=== PATIENT | female | born 1945 | race Caucasian/White ===

== ENCOUNTER → 2018-09-13 01:38 | Emergency (ER) | payer MEDICARE, BC ==
[~2018-09-13 01:38] MED LIST: Iodixanol* (CONTRAST) 320 MG/ML 100 ML SDV IV ONE; Pantoprazole IV* 40 MG IV ONE
--- NOTE | 2018-09-13 02:00 | ED ---
Back Pain - HPI Summary HPI Summary: Pt is a 73 y/o F presenting to the ED brought in by EMS with a chief complaint of back pain onset around 0020 located between her shoulder blades. Pt reports nausea and diaphoresis. Cardiac stress test done in 2014. - History of Current Complaint Chief Complaint: EDBackInjuryPain Stated Complaint: SHOULDER PAIN Time Seen by Provider: 09/13/18 01:41 Hx Obtained From: Patient Onset/Duration: Sudden Onset, Lasting Hours, Resolved Onset/Duration: Started Hours Ago, Resolved Timing: Constant, Lasting Hours Back Pain Location: Is Discrete @ - between shoulder blades Severity Initially: Moderate Severity Currently: Mild Pain Intensity: 1 Pain Scale Used: 0-10 Numeric Character: Sharp Aggravating Symptom(s): Nothing Alleviating Symptom(s): Nothing Associated Signs And Symptoms: Positive: Negative - Allergies/Home Medications Allergies/Adverse Reactions: Allergies Allergy/AdvReac Type Severity Reaction Status Date / Time MS Oxycodone [From Percodan] Allergy Rash Verified 09/13/18 04:04 Home Medications: Home Medications Cholecalciferol TAB* [Vitamin D TAB*] 400 unit PO DAILY 09/13/18 [History Confirmed 09/13/18] PMH/Surg Hx/FS Hx/Imm Hx Previously Healthy: No Endocrine/Hematology History: Reports: Hx Diabetes, Hx Thyroid Disease Cardiovascular History: Denies: Hx Hypertension Respiratory History: Denies: Hx Asthma, Hx Chronic Obstructive Pulmonary Disease (COPD) GI History: Denies: Hx Ulcer - Cancer History Hx Chemotherapy: No Hx Radiation Therapy: No - Surgical History Surgery Procedure, Year, and Place: 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 Infectious Disease History: No Infectious Disease History: Denies: Hx Hepatitis, Hx Human Immunodeficiency Virus (HIV), Traveled Outside the [place] in Last 30 Days - Family History Known Family History: Positive: Cardiac Disease, Hypertension, Diabetes - Social History Alcohol Use: None Substance Use Type: Reports: None Smoking Status (MU): Never Smoked Tobacco Review of Systems Positive: Skin Diaphoresis. Negative: Fever Positive: Nausea Positive: Myalgia - back pain All Other Systems Reviewed And Are Negative: Yes Physical Exam - Summary Physical Exam Summary: VITAL SIGNS: Reviewed. GENERAL: Patient is a well-developed and nourished female who is lying comfortable in the stretcher. Patient is not in any acute respiratory distress. HEAD AND FACE: No signs of trauma. No ecchymosis, hematomas or skull depressions. No sinus tenderness. EYES: PERRLA, EOMI x 2, No injected conjunctiva, no nystagmus. EARS: Hearing grossly intact. Ear canals and tympanic membranes are within normal limits. MOUTH: Oropharynx within normal limits. NECK: Supple, trachea is midline, no adenopathy, no JVD, no carotid bruit, no c- spine tenderness, neck with full ROM. CHEST: Symmetric, no tenderness at palpation LUNGS: Clear to auscultation bilaterally. No wheezing or crackles. CVS: Regular rate and rhythm, S1 and S2 present, no murmurs or gallops appreciated. ABDOMEN: Epigastric tenderness. No signs of distention. No rebound no guarding, and no masses palpated. Colostomy R mid abdomen, full of soft brown stool. EXTREMITIES: FROM in all major joints, no edema, no cyanosis or clubbing. NEURO: Alert and oriented x 3. No acute neurological deficits. Speech is normal and follows commands. SKIN: Dry and warm Triage Information Reviewed: Yes Vital Signs On Initial Exam: Initial Vitals Temp Pulse Resp BP Pulse Ox 97.9 F 56 15 137/54 95 09/13/18 01:40 09/13/18 01:40 09/13/18 01:40 09/13/18 01:40 09/13/18 01:40 Vital Signs Reviewed: Yes Diagnostics - Vital Signs Vital Signs Temp Pulse Resp BP Pulse Ox 09/13/18 01:40 97.9 F 56 15 137/54 95 - Laboratory Result Diagrams: 09/13/18 02:13 09/13/18 02:13 Lab Statement: Any lab studies that have been ordered have been reviewed, and results considered in the medical decision making process. - Radiology Chest x-ray Radiology Interpretation Completed By: ED Physician Summary of Radiographic Findings: No acute process. Official radiology report pending. - CT CTA Chest w/ Contrast CT Interpretation Completed By: Radiologist Summary of CT Findings: 1. There is a 1.4cm pulmonary nodule noted in the right lower lobe. Findings may represent a neoplastic process. Recommend further evaluation with PET CT or soft tissue sampling. 2. No evidence of pulmonary embolus or aortic dissection. There is no aortic aneurysm noted. ED physician has reviewed this report. - EKG 0216 Cardiac Rate: Bradycardia - 49bpm EKG Rhythm: Sinus Bradycardia ST Segment: Normal Ectopy: None EKG Comparison: No Significant Change - from 09/13/2015 Summary of EKG Findings: T-wave inversion in the second leads Back Pain Course/Dx - Course Course Of Treatment: Pt is a 73 y/o F presenting to the ED brought in by EMS with a chief complaint of back pain onset around 0020 located between her shoulder blades. Pt reports nausea and diaphoresis. Pt presently does not have any back pain, but has mild epigastric tenderness. Bloodwork obtained. An EKG shows sinus bradycardia with T wave inversion in the second leads, unchanged from 09/13/2015, and a chest x-ray shows no acute process, pending official radiology report. CTA Chest/abd/pelv shows a 1.4 cm pulmonary nodule noted in the R lower lobe which may represent a neoplastic process. Radiology recommends further evaluation with PET CT or soft tissue sampling. Results were discussed with pt. Both troponins came back normal. Pt will be discharged with dx of pulmonary nodule and chest pain with instructions to follow up with medical sales and [facility] outpatient as soon as possible. - Diagnoses Provider Diagnoses: Pulmonary nodule, Chest pain Discharge - Sign-Out/Discharge Documenting (check all that apply): Patient Departure Patient Received Moderate/Deep Sedation with Procedure: No - Discharge Plan Condition: Stable Disposition: HOME Patient Education Materials: Chest Pain (ED), Pulmonary Nodules (ED) Referrals: Tarun Ku PA [Primary Care Provider] - Boogie Cota MD [Medical Doctor] - Steph Culp MD [Medical Doctor] - Additional Instructions: PLEASE FOLLOW UP WITH [facility] SOON POSSIBLE TO ADDRESS YOUR PULMONARY NODULE. RETURN TO THE EMERGENCY DEPARTMENT WITH ANY NEW OR WORSENING SYMPTOMS. - Attestation Statements Document Initiated by Scribe: Yes Documenting Scribe: Ignacia Suarez Provider For Whom Vani is Documenting (Include Credential): Terry Silva MD. Scribe Attestation: Ignacia Higginbotham, scribed for Terry Silva MD. on 09/13/18 at 0614. Status of Scribe Document: Ready
[2018-09-13 02:22] LABS: ABS Basophils 0.1 10^3/ul (0-0.2); ABS Eosinophils 0.3 10^3/ul (0-0.6); ABS Lymphocytes 2.1 10^3/ul (1.0-4.8); ABS Neutrophils 5.9 10^3/ul (1.5-7.7); ABS Nucleated RBC 0 10^3/ul; Eosinophil % 2.9 %; Hematocrit 42 % (35-47); Hemoglobin 14.5 g/dl (12.0-16.0); Lymphocyte % 22.8 %; Mean Corpuscular HGB Conc 34 g/dl (31-36); Mean Corpuscular Hemoglobin 31 pg (27-31); Mean Corpuscular Volume 90 fL (80-97); Mean Platelet Volume 8.6 fL (7.4-10.4); Nucleated Red Blood Cells % 0; Platelet Count 216 10^3/ul (150-450); Red Blood Count 4.72 10^6/ul (4.00-5.40); Red Cell Distribution Width 12 % (10.5-15); White Blood Count 9.3 10^3/ul (3.5-10.8)
[2018-09-13 02:28] LABS: INR 0.93 (0.77-1.02)
[2018-09-13 02:29] LABS: Activated Partial Thrombo Time 31.7 seconds (26.0-36.3)
[2018-09-13 02:38] LABS: Albumin 4.1 g/dL (3.2-5.2); Albumin/Globulin Ratio 1.4 (1-3); BUN/Creatinine Ratio 21.3 (8-20); Calcium 9.4 mg/dL (8.6-10.3); EGFR African American 59.8 (>60); EGFR Non-African American 49.5 (>60); Magnesium 1.7 mg/dL (1.9-2.7); Total Bilirubin 0.4 mg/dL (0.2-1.0); Total Protein 7.1 g/dL (6.4-8.9)
[2018-09-13 02:39] LABS: Troponin I 0.01 ng/mL (<0.04)
[2018-09-13 02:55] LABS: TSH (Thyroid Stimulating Horm) 2.56 mcIU/mL (0.34-5.60)
[2018-09-13 06:32] VITALS: BP 122/68
== END | disposition home or self-care (01) ==
LOC: ED 01:38
DX: R07.89 Other chest pain (principal); R91.1 Solitary pulmonary nodule; R00.1 Bradycardia, unspecified; E11.9 Type 2 diabetes mellitus without complications; I45.10 Unspecified right bundle-branch block; Z88.5 Allergy status to narcotic agent
CPT/HCPCS: 36415; 71045; 71275; 74174; 80053; 82150; 83690; 83735; 84443; 84484; 85025; 85610; 85730; 86140; 93005; 96374; 99283; Q9967

== ENCOUNTER 2018-10-13 16:23 | Emergency (ER) | payer MEDICARE, BC ==
[2018-10-13 16:57] VITALS: BP 148/52
--- NOTE | 2018-10-13 17:19 | UC ---
UC General HPI - HPI Summary HPI Summary: 73 female c/o acute onset of midepig pain, progressively worse, since approx 15: 00 today. ++ nausea, no vomit. Last po approx 4:40pm, water /bagel. Has ostomy. See MDM re further hx significant. No fever. no cough. Recently last month admitted to the hospital for cp w/u. Has had nucl stress since then "normal". Has had PET scan as well ([facility] result). Also hx dvt in the past. RN note - nausea since 3pm today, vomitting. pain high center. has ostomy. 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 choly 97. T&A as child. cataract - Family History Known Family History: Positive: Cardiac Disease, Hypertension, Diabetes - Social History Alcohol Use: Daily Substance Use Type: None Smoking Status (MU): Never Smoked Tobacco Review of Systems All Other Systems Reviewed And Are Negative: Yes Constitutional: Positive: Negative Skin: Positive: Negative - nondiaphoretic Eyes: Positive: Negative ENT: Positive: Negative Respiratory: Positive: Other - see hpi Cardiovascular: Positive: Other - see hpi Gastrointestinal: Positive: Abdominal Pain, Nausea, Other - see hpi Genitourinary: Positive: Other - see hpi Motor: Positive: Other - see hpi Neurovascular: Positive: Other - see hpi Musculoskeletal: Positive: Other: - see hpi Neurological: Positive: Negative Psychological: Positive: Negative Is Patient Immunocompromised?: No Physical Exam Triage Information Reviewed: Yes Appearance: Well-Nourished, Pain Distress Vital Signs: Initial Vital Signs Temp 96.6 F 10/13/18 16:51 Pulse 105 10/13/18 16:51 Resp 22 10/13/18 16:51 BP 148/52 10/13/18 16:51 Pulse Ox 98 10/13/18 16:51 Vital Signs Reviewed: Yes Eye Exam: Normal - grossly normal ENT: Positive: Pharynx normal, Other - Facial expressions grossly symmetric. MMM dry. Neck exam: Normal Neck: Positive: Supple, Nontender Respiratory: Positive: Chest non-tender, Lungs clear - BS equal, clear, No respiratory distress, No accessory muscle use Cardiovascular Exam: Other - HR regular, with occas extra beat, correlates with L rad pulse Abdominal Exam: Other - + ostomy, with normal appearing stool. No blood gross. + multiple surgical scars. Abd is very tender, particularly midepigastrium, but also throughout abdomen. + NABS. Soft lower abd, but voluntary guarding upper abd. Musculoskeletal Exam: Normal - moves x 4 ext's. not overly edematous Neurological Exam: Normal - grossly nonfocal Psychological Exam: Normal - conversing easily and appropriately Course/Dx - Course Course Of Treatment: Multiple potential etiologies for pain. 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 Last seen in ED 09/13/18 ([facility]) . CT report in [facility] noted (includ possible 1.4cm pulm nodule RLL. Since then has had PET scan (also in [facility].). Pt drove herself here, but is currently very uncomfortable, including passive movement. [place] [facility] [place], she expresses agreement. Questions as posed answered to the best of my ability. EKG SR at 63 bpm, GA 220, QTc 484. similar 2.6.19. Blood glucose -. IV / fluids initiated prior to transfer. 17:45 d/w Dr. Morrison ED. - Diagnoses Provider Diagnosis: Acute abdominal pain Discharge - Sign-Out/Discharge Documenting (check all that apply): Patient Departure All imaging exams completed and their final reports reviewed: No Studies - Discharge Plan Condition: Guarded Disposition: ADMITTED TO [facility] Patient Education Materials: Acute Abdominal Pain (ED) Referrals: Tarun Ku PA [Primary Care Provider] - - Billing Disposition and Condition Condition: GUARDED Disposition: Admitted to [facility]
[2018-10-13] MEDS ORDERED: NS 0.9% 500 ML* 500 ML IV ONE (17:47)
[2018-10-13] MEDS ORDERED: NS 0.9% 1000 ML** 1,000 ML IV ONE (17:58)
== END 2018-10-13 18:05 | disposition short-term general hospital (02) ==
LOC: UCEAST 16:23
DX: R10.13 Epigastric pain (principal); R11.0 Nausea; Z88.5 Allergy status to narcotic agent
CPT/HCPCS: 96360; 99213; G0463

== ENCOUNTER 2018-10-13 18:28 | Inpatient (IN) | payer MEDICARE, BC ==
[2018-10-13] MEDS ORDERED: Morphine VIAL* 10 MG/ML 1 ML VIAL IV ONE ×2 (18:50→20:28)
[2018-10-13] MEDS ORDERED: Ondansetron INJ* 2 MG/ML VIAL IV ONE (18:50)
[2018-10-13] MEDS ORDERED: NS 0.9% 1000 ML** 1,000 ML IV ONE ×2 (18:52→20:46)
--- NOTE | 2018-10-13 18:56 | ED ---
Abdominal Pain/Female - HPI Summary HPI Summary: A 73 y/o female brought in by [facility] accompanied by her niece, presents to [facility] with a chief complaint of abdominal pain on 10/13/18. She reports that this pain was sudden onset. She was seen at [facility] and was sent to the ED for further evaluation. She claims that her abdominal pain is radiating to her back. She claims that she was walking when her symptoms started. She rates her pain as an 8/10 in severity. She claims that she has SOB and cant take a deep breath along with nausea and chills. She denies fever, erythema (eyes), sore throat, chest pain, cough, vomiting, black tarry stools, dysuria, hematuria, myalgia, edema, rash and dizziness. She claims that she had surgery on her pancreas and also had an appendectomy and cholecystectomy. She denies a Hx of stomach ulcers or a FHx of aneurysms. Vital signs while in room HR: 68 bpm, O2 Sat: 96, BP: 153/73. - History of Current Complaint Chief Complaint: EDAbdPain Stated Complaint: ABD PAIN/NAUSEA PER EMS Time Seen by Provider: 10/13/18 18:40 Hx Obtained From: Patient, Family/Fleet Maintenance Manager, EMS Hx Last Menstrual Period: na Onset/Duration: Sudden Onset, Lasting Hours, Still Present Timing: Constant Severity Initially: Severe Severity Currently: Severe Pain Intensity: 8 Pain Scale Used: 0-10 Numeric Location: Diffuse Radiates: Yes Radiates to: Back Character: Other: - sudden onset Aggravating Factor(s): Nothing Alleviating Factor(s): Nothing Associated Signs and Symptoms: Positive: Back Pain, Nausea. Negative: Fever, Cough, Chest Pain, Dizzy, Blood in Stool, Vomiting Allergies/Adverse Reactions: Allergies Allergy/AdvReac Type Severity Reaction Status Date / Time oxycodone Allergy Intermediate Rash Verified 10/13/18 16:57 PMH/Surg Hx/FS Hx/Imm Hx Endocrine/Hematology History: Reports: Hx Diabetes - typeII, Hx Thyroid Disease - hypo Cardiovascular History: Denies: Hx Hypertension Respiratory History: Denies: Hx Asthma, Hx Chronic Obstructive Pulmonary Disease (COPD) GI History: Denies: Hx Ulcer History: Denies: Hx Renal Disease - Cancer History Hx Chemotherapy: No Hx Radiation Therapy: No - Surgical History Surgery Procedure, Year, and Place: 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 choly 97. T&A as child. cataract Infectious Disease History: No Infectious Disease History: Denies: Hx Hepatitis, Hx Human Immunodeficiency Virus (HIV), Traveled Outside the [place] in Last 30 Days - Family History Known Family History: Positive: Cardiac Disease, Hypertension, Diabetes - Social History Alcohol Use: Daily Alcohol Amount: 1 a day Substance Use Type: Reports: None Smoking Status (MU): Never Smoked Tobacco Review of Systems Positive: Chills. Negative: Fever Negative: Erythema Negative: Sore Throat Negative: Chest Pain Positive: Shortness Of Breath. Negative: Cough Gastrointestinal: Negative - black tarry stool Positive: Abdominal Pain, Nausea. Negative: Vomiting Negative: dysuria, hematuria Positive: Myalgia - back pain. Negative: Edema Negative: Rash Neurological: Negative - dizziness All Other Systems Reviewed And Are Negative: Yes Physical Exam - Summary Physical Exam Summary: Constitutional: Well-developed, Well-nourished, Alert. (-) Distressed Skin: Warm, Dry HENT: Normocephalic; Atraumatic Eyes: Conjunctiva normal Neck: Musculoskeletal ROM normal neck. (-) JVD, (-) Stridor, (-) Tracheal deviation Cardio: Rhythm regular, rate normal, Heart sounds normal; Intact distal pulses; The pedal pulses are 2+ and symmetric. Radial pulses are 2+ and symmetric. (-) Murmur Pulmonary/Chest wall: Effort normal. (-) Respiratory distress, (-) Wheezes, (-) Rales Abd: Soft, (+) diffuse tenderness, (-) Distension, (+) Guarding, (+) Rebound Musculoskeletal: (-) Edema Lymph: (-) Cervical adenopathy Neuro: Alert, Oriented x3 Psych: Mood and affect Normal Triage Information Reviewed: Yes Vital Signs On Initial Exam: Initial Vitals Temp Pulse Resp BP Pulse Ox 98.1 F 69 18 153/73 96 10/13/18 18:32 10/13/18 18:32 10/13/18 18:32 10/13/18 18:32 10/13/18 18:32 Vital Signs Reviewed: Yes Diagnostics - Vital Signs Vital Signs Temp Pulse Resp BP Pulse Ox 10/13/18 18:32 98.1 F 69 18 153/73 96 - Laboratory Result Diagrams: 10/13/18 19:14 10/13/18 19:13 Lab Statement: Any lab studies that have been ordered have been reviewed, and results considered in the medical decision making process. - Radiology CXR Radiology Interpretation Completed By: ED Physician Summary of Radiographic Findings: No obvious free air. Pending official imaging report. - CT abdomen/pelvis CT Interpretation Completed By: Radiologist Summary of CT Findings: 1. Common bile duct is enlarged up to 1.6 cm in diameter , increased in size. when compared with prior PET-CT from 3 days ago. 2. Small degree of pneumobilia, likely related to prior ERCP. 3. Other chronic findings, as above. ED physician has reviewed this imaging report. Re-Evaluation - Re-Evaluation First Eval Re-Evaluation Time: 19:24 Change: Improved Comment: Patient reports feeling a little better. Second Eval Re-Evaluation Time: 22:09 Change: Unchanged Comment: Informed patient about plan for admission. Abdominal Pain Fem Course/Dx - Course Course Of Treatment: A 73 y/o female brought in by [facility] ambulance accompanied by her niece, presents to [facility] with a chief complaint of abdominal pain on 03/26. She reports that this pain was sudden onset. She was seen at [facility] and was sent to the ED for further evaluation. She claims that her abdominal pain is radiating to her back. She claims that she was walking when her symptoms started. She rates her pain as an 8/10 in severity. She claims that she has SOB and cant take a deep breath along with nausea and chills. She denies fever, erythema (eyes), sore throat, chest pain, cough, vomiting, black tarry stools, dysuria, hematuria, myalgia, edema, rash and dizziness. She claims that she had surgery on her pancreas and also had an appendectomy and cholecystectomy. She denies a Hx of stomach ulcers or a FHx of aneurysms. The physical exam revealed diffuse tenderness with guarding and rebound. CXR impression: No obvious free air. Pending official imaging report. Bloodwork, chemistries and urines obtained. Lactic acid of 2.9 and lipase of 6439 at 19: 14. Urine glucose 3+ at 20:13. In the ED course the patient was given Morphine IV, Zofran IV, Zosyn IVPB, Sodium chloride IV, and Iodixanol (contrast) IV. CT abdomen/pelvis impression: 1. Common bile duct is enlarged up to 1.6 cm in diameter, increased in size. when compared with prior PET-CT from 3 days ago. 2. Small degree of pneumobilia, likely related to prior ERCP. 3. Other chronic findings, as above. ED physician has reviewed this imaging report. Discussed case with Dr. Billings, appeals manager, who recommended admission and plan for MRCP in the morning. He agreed with the abx. Case discussed with Dr. Garcia , hospitalist, who accepted the patient for admission. The patient is agreeable with this plan. - Diagnoses Provider Diagnoses: Gall stone pancreatitis, Cholangitis - Provider Notifications Discussed Care Of Patient With: Reagan Billings Time Discussed With Above Provider: 22:01 Instructed by Provider To: Other - He recommended admission and plan for MRCP in the morning. He agreed with the abx. - Critical Care Time Critical Care Time: 30-74 min - 45 mins Discharge - Sign-Out/Discharge Documenting (check all that apply): Patient Departure - admit Patient Received Moderate/Deep Sedation with Procedure: No - Discharge Plan Condition: Fair Disposition: ADMITTED TO [facility] Referrals: Tarun Ku PA [Primary Care Provider] - - Billing Disposition and Condition Condition: FAIR Disposition: Admitted to [facility] - Attestation Statements Document Initiated by Vani: Yes Documenting Scribe: Pardeep Garcia Provider For Whom Melodiee is Documenting (Include Credential): Justyn Morrison MD Scribe Attestation: Pardeep Higginbotham, scribed for Justyn Morrison MD on 10/13/18 at 2237. Scribe Documentation Reviewed: Yes Provider Attestation: The documentation as recorded by the Pardeep marshall accurately reflects the service I personally performed and the decisions made by me, Justyn Morrison MD Status of Scribe Document: Viewed Consult Consult: At 22:15 - Case discussed with Dr. Garcia, hospitalist, who will consult on the patient.
[2018-10-13 19:25] LABS: ABS Basophils 0 10^3/ul (0-0.2); ABS Eosinophils 0 10^3/ul (0-0.6); ABS Lymphocytes 1.3 10^3/ul (1.0-4.8); ABS Monocytes 1.5 10^3/ul (0-0.8); ABS Neutrophils 14.5 10^3/ul (1.5-7.7); ABS Nucleated RBC 0 10^3/ul; Eosinophil % 0.2 %; Hematocrit 43 % (35-47); Hemoglobin 14.5 g/dl (12.0-16.0); Lymphocyte % 7.7 %; Mean Corpuscular HGB Conc 34 g/dl (31-36); Mean Corpuscular Hemoglobin 30 pg (27-31); Mean Corpuscular Volume 91 fL (80-97); Mean Platelet Volume 8.4 fL (7.4-10.4); Nucleated Red Blood Cells % 0; Platelet Count 224 10^3/ul (150-450); Red Blood Count 4.79 10^6/ul (4.00-5.40); Red Cell Distribution Width 13 % (10.5-15); White Blood Count 17.5 10^3/ul (3.5-10.8)
[2018-10-13] MEDS ORDERED: ED Piperacillin/Tazobac 3.375 3.375 GM/100 ML PREMIX.SET IVPB ONE (19:45)
[2018-10-13 19:52] LABS: Albumin 4.4 g/dL (3.2-5.2); Albumin/Globulin Ratio 1.4 (1-3); BUN/Creatinine Ratio 21.2 (8-20); C Reactive Protein 6.38 mg/L (<8.01); Calcium 9.5 mg/dL (8.6-10.3); EGFR African American 78.9 (>60); EGFR Non-African American 65.2 (>60); Globulin 3.1 g/dL (2-4); Potassium 4.3 mmol/L (3.5-5.0); Total Bilirubin 0.6 mg/dL (0.2-1.0); Total Protein 7.5 g/dL (6.4-8.9)
[2018-10-13] MEDS ORDERED: Iodixanol* (CONTRAST) 320 MG/ML 100 ML SDV IV ONE (20:13)
[2018-10-13] MEDS ORDERED: Piperacillin/Tazobac (*) 3.375 GM BAG ONE (20:27)
[2018-10-13] MEDS ORDERED: Morphine VIAL* 4 MG/ML VIAL (1 ml vial) ONE (20:32)
[2018-10-13 20:33] LABS: Urine Appearance Clear; Urine Bilirubin Negative (Negative); Urine Blood Negative (Negative); Urine Color Yellow; Urine Glucose 3+(>=500 mg/dL) (Negative); Urine Ketones Negative (Negative); Urine Nitrite Negative (Negative); Urine Protein Negative (Negative); Urine Specific Gravity 1.015 (1.010-1.030); Urine Urobilinogen Negative (Negative)
[2018-10-13] MEDS ORDERED: Ondansetron INJ* 2 MG/ML VIAL IV PRN (22:50)
[2018-10-13] MEDS ORDERED: Acetaminophen TAB* 325 MG PO PRN (22:50)
[2018-10-13] MEDS ORDERED: Dextrose 50% Syringe 50 ML* 25 GM/50 ML SYRINGE IV PUSH PRN (23:14)
--- NOTE | 2018-10-14 01:23 | HP ---
CC: Dr. Everardo Ku in [place] * ADMISSION HISTORY AND PHYSICAL: DATE OF ADMISSION: 10/13/18 PRIMARY CARE PROVIDER: Dr. Everardo Ku in [place]. MY ATTENDING WHILE IN THE HOSPITAL: Dr. Madie Garcia.* (DICTATED BY JAELYN RUBIO) CHIEF COMPLAINT: Abdominal pain x8 hours. HISTORY OF PRESENT ILLNESS: Ms. Lazar is a 73-year-old female with past medical history significant for presumed recurrent pancreatitis initially from an ERCP, then of unknown etiology likely gallstone pancreatitis with postoperative course complicated by infected pancreatic cyst, hemorrhagic pancreatitis, and the need for pancreatic tail resection as well as C. diff recurrent x3 in the postoperative period, one time complicated by septic shock and need for colostomy. The patient states that she was in her normal state of health. She had not had any illnesses since she had the flu in her early September and had sudden onset of severe epigastric pain, boring, radiating to her back, at worst 8/10, associated with nausea and vomiting, without chest pain or shortness of breath. The patient had a bagel with a large amount of butter on it and cake earlier in the day, but generally does not have excessively fatty meals. The patient has not had any changes in medications in the last year and a half. The patient is not taking medications except for aspirin associated with pancreatitis. The patient has no fevers. The patient has been having chills. The patient does not have any blood in her colostomy. The patient has been draining normal amount from her colostomy. The patient has had no other sick contacts. The patient has not had anything abnormal. The patient has had no recent travel. The patient most recently had a PET scan and a CT scan to evaluate a pulmonary nodule without concern for malignancy. The patient came into the emergency department, was found to have an elevated white blood cell count, elevated lactic acid, and an elevated lipase of 6439. The patient was given fluids, pain control, and is feeling much better. The patient is nontachycardic, nonfebrile, not anemic. Due to concern for pancreatis, we were asked to evaluate the patient for admission to the hospital. PAST MEDICAL HISTORY: Recurrent pancreatitis, recurrent C. diff in 2010, hypothyroidism, diabetes mellitus type 2, pulmonary nodule. PAST SURGICAL HISTORY: Colostomy, cholecystectomy in 1996, distal pancreatectomy in August 2010. MEDICATIONS: 1. Synthroid 112 mcg p.o. daily. 2. Liothyronine 5 mcg p.o. b.i.d. 3. Invokana 5 mg p.o. daily. 4. B-complex vitamin 1 tablet p.o. daily. 5. Vitamin D 1000 units p.o. daily. 6. Magnesium oxide 400 mg p.o. q.i.d. 7. Potassium chloride 10 mEq p.o. every other day. 8. Aspirin 81 mg p.o. daily. 9. Multivitamin 1 tablet p.o. daily. 10. Calcium D 600 mg p.o. b.i.d. ALLERGIES: OXYCODONE. FAMILY HISTORY: The patient's mother at 60 with CHF. The patient's father at 76 with CHF. The patient had a sister who of breast cancer and a brother who of heart disease with a CABG. The patient had another brother who at 43 of complications of diabetes. SOCIAL HISTORY: The patient has never smoked. The patient drinks approximately 6 glasses of wine a week. The patient denies illicit drug use. 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 The patient's surrogate decision maker is her niece, Sania. REVIEW OF SYSTEMS: A 14-point review of systems was reviewed, was negative except as above in the HPI. PHYSICAL EXAMINATION GENERAL: The patient is a 73-year-old female, who appears stated age and sitting comfortably in bed, in no acute distress. VITAL SIGNS: Temperature 98.1, pulse rate 69, respiratory rate 18, oxygen saturation 92% on room air, blood pressure 106/76. HEENT: Head: Normocephalic, atraumatic. Sclerae anicteric. No conjunctival injection. Nasal mucosa dry. No pharyngeal erythema, discharge, or exudate. NECK: Supple, nontender. No lymphadenopathy. No carotid bruits auscultated. No JVD. RESPIRATORY: Clear to auscultation bilaterally. No wheezes or rhonchi. Good air exchange bilaterally. CARDIAC: Regular rate and rhythm. No clicks, murmurs, gallops, or rubs. Pulses 2+ in bilateral dorsalis pedis, posterior tibial, and radial areas. ABDOMEN: Soft, tender to palpation throughout particularly with bilateral upper lobes. Colostomy draining liquid green stool without blood. Normoactive bowel sounds present in all 4 quadrants. No hepatosplenomegaly. No abdominal bruits auscultated. GENITOURINARY: No suprapubic or CVA tenderness. NEURO: Cranial nerves II through XII intact. No focal deficits. Alert and oriented x3. PSYCHIATRIC: Pleasant and cooperative. SKIN: Clean, dry, and intact. No rash. Previous abdominal surgery scars. DIAGNOSTIC STUDIES/LAB DATA: White blood cell count 17.5, hemoglobin 14.5, platelet count 224. Sodium 139, potassium 4.3, chloride 102, carbon dioxide 26 , anion gap 10, BUN 18, creatinine 0.85, glucose 136, lactic acid 2.9, calcium 9.5. Bilirubin 0.6, AST 24, ALT 20, alkaline phosphatase 67. CRP 6.38. Protein 7.5, albumin 4.4, globulin 3.1, lipase 6439. Urine shows 3+ glucose, otherwise negative. Studies: Abdomen and pelvis CT read as common bile duct enlarged up to 1.6 cm and/or increased in size when compared to prior PET CT from 3 days ago, moderate pneumobilia likely related prior ERCP. Other chronic findings included right-sided ostomy, right parastomal hernia containing loops of bowel with no obstruction, diverticulosis, rectosigmoid colonic stump. Chest x-ray to this author's interpretation shows no active cardiopulmonary disease. ASSESSMENT AND PLAN: Impression: Ms. Lazar is a 73-year-old female with past medical history significant for recurrent pancreatitis and Clostridium difficile with colostomy and pancreatectomy as well as diabetes, who presents with sudden onset abdominal pain, was found to have pancreatitis of unclear cause. The patient will be admitted to the hospital for fluids, pain control, and gastroenterology consultation in the morning. 1. Pancreatitis, unknown cause. The patient has clear pancreatitis without cholangitis. The patient has a dilated bile duct. The patient has no gallbladder, though this entirely exclude gallstone disease, this could also be due to duct dyskinesia, idiopathic pancreatitis, as no previous cause for the patient's pancreatitis has been truly ruled in. The patient does believe that she previously had gallstone pancreatitis just after her cholecystectomy. The patient will have an MRCP in the morning. The patient will have triglyceride level checked. The patient did have a high fat diet today and is a diabetic. The patient's blood pressure is within normal limits. The patient had an elevated lactic acid, this will be repeated after fluids. The patient had CRP of 6.38. No fevers. No tachycardia. No other signs of infection. Given the patient's previous history of Clostridium difficile, the patient received 1 dose of Zosyn in the emergency department, this will not be repeated unless the patient develops more overt signs of infection. The patient will be monitored closely for signs of deterioration given her history of complicated pancreatitis. The patient will have fluids at 125 mL an hour. The patient previously needed dialysis in association with her pancreatitis. The patient's creatinine is currently normal. We will trend the lipase and the patient will be seen in consultation by Dr. Billings of Gastroenterology in the morning. 2. History of Clostridium difficile. Plan as above. Judicious use of antibiotics. 3. Hypothyroidism. Continue Synthroid and liothyronine. 4. Diabetes mellitus type 2. Monitor the patient with q.6 hours fingersticks and low-dose sliding scale insulin. 5. DVT prophylaxis. The patient will have heparin subcu. 6. FEN. The patient will be n.p.o. except for sips of meds and fluids as above. 7. Disposition: The patient is admitted inpatient with an estimated length of stay greater than 2 midnights. TIME SPENT: Approximately 60 minutes was spent on the admission of this patient , 30 of which was spent [id number] with patient obtaining history and physical and discussion treatment plan. This plan was discussed with my attending, Dr. Madie Garcia, and she is in agreement. JAELYN RUBIO [id number]/[facility] #: [id number] ISA
[2018-10-14] MEDS: Morphine VIAL* 4 MG/ML VIAL (1 ml vial) IV PRN ×4 (01:27→13:16)
[2018-10-14] MEDS: Heparin VIAL(*) 5000 UNITS/ML VIAL (FIVE THOUSAND) SUBCUT SCH ×3 (01:28→14:43)
[2018-10-14] MEDS: NS 0.9% 1000 ML** 1,000 ML IV SCH ×3 (02:01→19:39)
[2018-10-14] MEDS: Insulin LISPRO* 1 UNITS UNIT SUBCUT SCH ×4 (05:34→16:53)
[2018-10-14] MEDS: Liothyronine TAB* 5 MCG PO SCH ×2 (05:49→14:49)
[2018-10-14] MEDS: Levothyroxine TAB* 112 MCG TAB PO SCH (05:49)
[2018-10-14 05:56] LABS: ABS Basophils 0 10^3/ul (0-0.2); ABS Eosinophils 0 10^3/ul (0-0.6); ABS Lymphocytes 1.8 10^3/ul (1.0-4.8); ABS Monocytes 0.9 10^3/ul (0-0.8); ABS Neutrophils 10.5 10^3/ul (1.5-7.7); ABS Nucleated RBC 0 10^3/ul; Eosinophil % 0.4 %; Hematocrit 39 % (35-47); Hemoglobin 12.7 g/dl (12.0-16.0); Lymphocyte % 13.6 %; Mean Corpuscular HGB Conc 33 g/dl (31-36); Mean Corpuscular Hemoglobin 30 pg (27-31); Mean Corpuscular Volume 91 fL (80-97); Mean Platelet Volume 8.5 fL (7.4-10.4); Nucleated Red Blood Cells % 0; Platelet Count 153 10^3/ul (150-450); Red Blood Count 4.23 10^6/ul (4.00-5.40); Red Cell Distribution Width 14 % (10.5-15); White Blood Count 13.3 10^3/ul (3.5-10.8)
[2018-10-14 06:12] LABS: Albumin 3.5 g/dL (3.2-5.2); Albumin/Globulin Ratio 1.3 (1-3); C Reactive Protein 74.31 mg/L (<8.01); Calcium 8.3 mg/dL (8.6-10.3); EGFR African American 91.2 (>60); EGFR Non-African American 75.3 (>60); Globulin 2.7 g/dL (2-4); Magnesium 1.7 mg/dL (1.9-2.7); Potassium 4.3 mmol/L (3.5-5.0); Total Bilirubin 0.8 mg/dL (0.2-1.0); Total Protein 6.2 g/dL (6.4-8.9)
[2018-10-14] MEDS ORDERED: Magnesium Sulfate 2 GM IV* 2 GM/50 ML BAG IVPB ONE (09:15)
[2018-10-14] MEDS: Multivitamins/Minerals TAB PO SCH (10:59)
[2018-10-14] MEDS: Cholecalciferol TAB* 400 UNIT PO SCH (10:59)
[2018-10-14] MEDS: Magnesium Oxide TAB* 400 MG PO SCH ×4 (10:59→21:25)
[2018-10-14] MEDS: Vitamin B Complex TAB PO SCH (11:53)
--- NOTE | 2018-10-14 15:47 | PN ---
Subjective Date of Service: 10/14/18 Interval History: Pt's abd pain is down to 4/10, no new, other complaints. Seen with daughter and hand cultivator by the bedside Objective Active Medications: Acetaminophen (Tylenol Tab*) 650 mg PO Q6H PRN PRN Reason: FEVER/PAIN Cholecalciferol (Vitamin D Tab*) 400 unit PO DAILY [facility] Last Admin: 10/14/18 10:59 Dose: 400 unit Dextrose (D50w Syringe 50 Ml*) 12.5 gm IV PUSH .FOR FS < 60 - SS PRN PRN Reason: FS < 60 Sodium Chloride (Ns 0.9% 1000 Ml) 1,000 mls @ 125 mls/hr IV PER RATE [facility] Last Admin: 10/14/18 02:01 Dose: 125 mls/hr Insulin Human Lispro (Humalog*) 0 units SUBCUT Q6HR [facility]; Protocol Last Admin: 10/14/18 11:50 Dose: Not Given Levothyroxine Sodium (Synthroid Tab*) 112 mcg PO DAILY@0600 [facility] Last Admin: 10/14/18 05:49 Dose: 112 mcg Liothyronine Sodium (Cytomel Tab*) 5 mcg PO BID@0600,1500 [facility] Last Admin: 10/14/18 14:49 Dose: 5 mcg Magnesium Oxide (Magox 400 Tab*) 400 mg PO QID [facility] Last Admin: 10/14/18 14:49 Dose: 400 mg Morphine Sulfate (Morphine Vial*) 2 mg IV Q2H PRN PRN Reason: PAIN Last Admin: 10/14/18 13:16 Dose: 2 mg Multivitamins/Minerals (Theragran/Minerals Tab*) 1 tab PO DAILY [facility] Last Admin: 10/14/18 10:59 Dose: 1 tab Ondansetron HCl (Zofran Inj*) 4 mg IV Q6H PRN PRN Reason: NAUSEA Potassium Chloride (Klor Con Er Tab*) 10 meq PO EVERY OTHER DAY [facility] Vitamin B Complex/Vitamin E (B Complex-50*) 1 tab PO DAILY [facility] Last Admin: 10/14/18 11:53 Dose: 1 tab Vital Signs - 8 hr 10/14/18 10/14/18 10/14/18 07:55 08:00 08:19 Temperature 98.8 F Pulse Rate 54 Respiratory 16 16 16 Rate Blood Pressure 103/44 (mmHg) O2 Sat by Pulse 93 Oximetry 10/14/18 10/14/18 10/14/18 09:15 12:14 13:16 Temperature 98.3 F Pulse Rate 51 Respiratory 16 20 20 Rate Blood Pressure 120/38 (mmHg) O2 Sat by Pulse 94 Oximetry 10/14/18 10/14/18 13:31 14:44 Temperature Pulse Rate Respiratory 18 Rate Blood Pressure 102/40 (mmHg) O2 Sat by Pulse Oximetry Oxygen Devices in Use Now: None Appearance: 73 yo F in nAD, aAOx3 Eyes: No Scleral Icterus, PERRLA Ears/Nose/Mouth/Throat: NL Teeth, Lips, Gums, Mucous Membranes Moist Neck: NL Appearance and Movements; NL JVP, Trachea Midline Respiratory: Symmetrical Chest Expansion and Respiratory Effort, Clear to Auscultation Cardiovascular: NL Sounds; No Murmurs; No JVD, RRR Abdominal: - - soft, tender in epigastrium, no rebound, no guarding, BS+, colostomy bag with loose stool in left mid abd noted Lymphatic: No Cervical Adenopathy Extremities: No Edema, No Clubbing, Cyanosis Skin: No Rash or Ulcers, No Nodules or Sclerosis Neurological: Alert and Oriented x 3, NL Muscle Strength and Tone Result Diagrams: 10/14/18 05:48 10/14/18 05:48 Assess/Plan/Problems-Billing Assessment: 73 yo F who developed acute pancreatitis in 2009 complicated by hemorrhagic cyst and 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 Pt had colostomy placed in 2010 as a result of fistulas and pancreatic tail resection. Has not had any problems since apart for developing DM 2 years ago and placed on Invokana. On 10/13/18 developed severe abd pain and lipase was>6000 H/o recent PET/CT for lung nodule f/u with - Patient Problems (1) Acute pancreatitis Comment: d/w DR. Billings No need for emergent MRCP since lipase markedly improved today to 1700 and LFT' s WNL. Unsure of significance of CBD dilatation-? passed stone? cont conservative management with IVF, sips of clears (2) DM2 (diabetes mellitus, type 2) Comment: Invokana could cause pancreatitis-was stopped, cont ISS (3) Hypothyroidism Comment: cont home PO meds (4) DVT prophylaxis Comment: pt declined HSQ due to h/o hemorrhagic pancreatic cyst in 2009, cont SCD's Status and Disposition: inpatient
--- NOTE | 2018-10-14 21:33 | CONS ---
GASTROENTEROLOGY CONSULT: DATE OF CONSULT: 10/14/18 CONSULTING PHYSICIANS: Dr. Ghada Templeton; Everardo CHRISTY, [place], [place] REASON FOR CONSULT: Acute pancreatitis in a woman with prior pancreatitis episodes in 1996 and July 2010. 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 She had eaten a piece of cake in the mid morning and also had a bagel with a large amount of butter on it. These were not particularly unusual items. She had typical mid epigastric pain going through to her back around 3 PM The pain increased. She came to the emergency room where she was found to have a white count of 17.5 and a lipase of 6439. LFTs were absolutely normal. Her vitals were otherwise normal. She was admitted to the medical floor and has been treated conservatively. CT of the abdomen and pelvis showed a dilated common duct at 1.6 cm with a little bit of gas. The pancreas appeared unremarkable with no comments about postoperative changes in the area. She has a large abdominal hernia near her right- sided ostomy. There are left-sided diverticula. Overnight, she has generally done well with no fever. PAST MEDICAL HISTORY: 1. Hypothyroidism - initiated replacement in 1984. 2. Adult onset diabetes - treatment initiated in 2016, initially metformin but it was being blamed for episodes of low blood sugar and thus she was changed to Invokana sometime in late 2016. 3. Cholecystectomy in 1996. 4. Distal pancreatectomy in August 2010. 5. Recurring pancreatitis - she recalls that when gallstones were diagnosed in 1996, she had multiple diagnostic studies and this included an ERCP, which was followed by pancreatitis and a 5-day hospital stay. The span from the onset of the workup to having the cholecystectomy was 4 to 6 weeks. This was in [place]. She then recalls no other trouble with her pancreas until July 2010 when there was severe pancreatitis and she was admitted to a hospital in [place], [place]. She developed sepsis, pancreatic necrosis, and abscess and had to have distal pancreatectomy. 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 As she had no family in the area, she was transferred from [place] to a rehab facility in [place], [place]. She was there just a week or two when she developed sepsis and had to be emergently transferred to [facility]. No other beds were available regionally. There at [facility], metabolic problems were discovered including adrenal insufficiency. She ended up having a colostomy in May 2011. Following recuperation from all those events, she recalls no other episode of pancreatitis or difficulty with her pancreas until this current episode. 6. Colostomy - an attempt to take down the colostomy in 2011 at [facility] failed. She had been with a permanent colostomy. 7. Recurring Clostridium difficile - in 2011 at some point during her [facility] stays. 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 She has no children and now lives in [facility] [place] [facility] where she has nieces. One niece Sania Adams is a physician education administrative assistant at [employer]. She is quite active in her local taoist. She does not take exotic supplements. Her wine intake is one glass a day quite consistantly. She did have many glasses 5 days before this illness during a iraida dinner. REVIEW OF SYSTEMS: She was in the ER on 01/24 with pain between the shoulder blades. She then had a workup for an aortic problem and none was identified. The diagnosis was unclear. There has been no history of NE, unstable angina, syncope, arrhythmias, TB. She does have a pulmonary nodule that was discovered during the September 2018 CTA. Recent PET scan per Dr Culp showed a low activity in the nodule. No prior history of liver disease. No history of recent fall or fracture. PHYSICAL EXAM: She is an older woman in no overt distress. Afebrile, pulse 55 , blood pressure 103/44. She is a mesomorphic build. She is anicteric, in no distress. There is no adenopathy. Her lungs are clear. Breath sounds are normal. The abdomen is complex with a right of midline slightly upper quadrant ostomy with green stool. Examined flat her hernia is not completely evident. Bowel sounds are positive and normal sounding. She is soft and nontender. Rectal deferred. Extremities show no edema. LABS: Hg 12.7, MCV 91, platelets 153. LFTs and TG normal, albumin 3.5 (had been 4.1 at ER presentation on 09/13/18), and recent TSH 09/13/18 is 2.56. IMPRESSION: This 73-year-old woman presents with acute pancreatitis. Cause is unclear as her gallbladder is removed, LFTs normal, alcohol and substance abuse disorder is not present, supplement use minimal, and at this point, supportive care is appropriate. A biliary cause is unlikely with very low consistent ALTs. Investigations as to whether Invokana could be a cause of this will be of interest. Converting her to metformin is certainly a logical step. Question arises as to whether a high-fat meal she had yesterday could have triggered this. Certainly, a low-fat diet is to be promoted. Prior episodes of pancreatitis can cause stricturing of the pancreatic duct, but specifically the CT says there was no pancreatic ductal dilation. Review of the records from 2010 at [facility], which were closer to the acute events of July 2010 that seemed to precipitate most of the complications would be of interest. Addendum: she recalls the Jul 2010 bout of pancreatitis occurred just after a week of rich food and increased wine; Invokana case reports were all onset within a month or two. [id number]/[facility] #: [id number] ISA
[2018-10-15] MEDS: Insulin LISPRO* 1 UNITS UNIT SUBCUT SCH ×4 (00:12→17:01)
[2018-10-15] MEDS: NS 0.9% 1000 ML** 1,000 ML IV SCH ×3 (04:44→18:15)
[2018-10-15] MEDS: Levothyroxine TAB* 112 MCG TAB PO SCH (05:39)
[2018-10-15] MEDS: Liothyronine TAB* 5 MCG PO SCH ×2 (05:39→15:45)
[2018-10-15 08:35] LABS: ABS Basophils 0 10^3/ul (0-0.2); ABS Eosinophils 0.2 10^3/ul (0-0.6); ABS Lymphocytes 1.3 10^3/ul (1.0-4.8); ABS Monocytes 0.6 10^3/ul (0-0.8); ABS Neutrophils 4.2 10^3/ul (1.5-7.7); ABS Nucleated RBC 0 10^3/ul; Eosinophil % 3.3 %; Hematocrit 36 % (35-47); Hemoglobin 12.1 g/dl (12.0-16.0); Lymphocyte % 19.7 %; Mean Corpuscular HGB Conc 33 g/dl (31-36); Mean Corpuscular Hemoglobin 30 pg (27-31); Mean Corpuscular Volume 91 fL (80-97); Mean Platelet Volume 8.9 fL (7.4-10.4); Nucleated Red Blood Cells % 0; Platelet Count 152 10^3/ul (150-450); Red Blood Count 3.99 10^6/ul (4.00-5.40); Red Cell Distribution Width 13 % (10.5-15); White Blood Count 6.3 10^3/ul (3.5-10.8)
[2018-10-15 08:54] LABS: Albumin 3.1 g/dL (3.2-5.2); Albumin/Globulin Ratio 1.1 (1-3); BUN/Creatinine Ratio 15.8 (8-20); Calcium 8.4 mg/dL (8.6-10.3); EGFR African American 89.8 (>60); EGFR Non-African American 74.2 (>60); Globulin 2.8 g/dL (2-4); Magnesium 1.7 mg/dL (1.9-2.7); Total Bilirubin 0.7 mg/dL (0.2-1.0); Total Protein 5.9 g/dL (6.4-8.9)
[2018-10-15] MEDS: Magnesium Oxide TAB* 400 MG PO SCH ×4 (10:02→21:45)
[2018-10-15] MEDS: Vitamin B Complex TAB PO SCH (10:02)
[2018-10-15] MEDS: Potassium Chlor TAB* 10 MEQ TAB.ER PO SCH (10:02)
[2018-10-15] MEDS: Multivitamins/Minerals TAB PO SCH (10:02)
[2018-10-15] MEDS: Cholecalciferol TAB* 400 UNIT PO SCH (10:02)
[2018-10-15] MEDS ORDERED: Magnesium Sulfate 2 GM IV* 2 GM/50 ML BAG IVPB ONE (11:55)
--- NOTE | 2018-10-15 12:26 | PN ---
Subjective Date of Service: 10/15/18 Interval History: pt feels well, denies pain.Stoma output decreased due to diet limitation but pt has flatulence Objective Active Medications: Acetaminophen (Tylenol Tab*) 650 mg PO Q6H PRN PRN Reason: FEVER/PAIN Cholecalciferol (Vitamin D Tab*) 400 unit PO DAILY [facility] Last Admin: 10/15/18 10:02 Dose: 400 unit Dextrose (D50w Syringe 50 Ml*) 12.5 gm IV PUSH .FOR FS < 60 - SS PRN PRN Reason: FS < 60 Sodium Chloride (Ns 0.9% 1000 Ml) 1,000 mls @ 75 mls/hr IV PER RATE [facility] Last Admin: 10/15/18 10:03 Dose: 75 mls/hr Magnesium Sulfate (Magnesium Sulfate 2 Gm Iv*) 2 gm in 50 mls @ 50 mls/hr IVPB ONCE ONE Stop: 10/15/18 12:54 Insulin Human Lispro (Humalog*) 0 units SUBCUT Q6HR [facility]; Protocol Last Admin: 10/15/18 12:05 Dose: Not Given Levothyroxine Sodium (Synthroid Tab*) 112 mcg PO DAILY@0600 [facility] Last Admin: 10/15/18 05:39 Dose: 112 mcg Liothyronine Sodium (Cytomel Tab*) 5 mcg PO BID@0600,1500 [facility] Last Admin: 10/15/18 05:39 Dose: 5 mcg Magnesium Oxide (Magox 400 Tab*) 400 mg PO QID [facility] Last Admin: 10/15/18 10:02 Dose: 400 mg Morphine Sulfate (Morphine Vial*) 2 mg IV Q2H PRN PRN Reason: PAIN Last Admin: 10/14/18 13:16 Dose: 2 mg Multivitamins/Minerals (Theragran/Minerals Tab*) 1 tab PO DAILY [facility] Last Admin: 10/15/18 10:02 Dose: 1 tab Ondansetron HCl (Zofran Inj*) 4 mg IV Q6H PRN PRN Reason: NAUSEA Potassium Chloride (Klor Con Er Tab*) 10 meq PO EVERY OTHER DAY [facility] Last Admin: 10/15/18 10:02 Dose: 10 meq Vitamin B Complex/Vitamin E (B Complex-50*) 1 tab PO DAILY [facility] Last Admin: 10/15/18 10:02 Dose: 1 tab Vital Signs - 8 hr 10/15/18 10/15/18 10/15/18 07:49 08:00 11:24 Temperature 98.1 F 98.2 F Pulse Rate 51 50 Respiratory 18 18 16 Rate Blood Pressure 127/49 104/46 (mmHg) O2 Sat by Pulse 93 95 Oximetry Oxygen Devices in Use Now: None Appearance: 73 yo F in nAD, AAOx3 Eyes: No Scleral Icterus, PERRLA Ears/Nose/Mouth/Throat: NL Teeth, Lips, Gums, Mucous Membranes Moist Neck: NL Appearance and Movements; NL JVP Respiratory: Symmetrical Chest Expansion and Respiratory Effort, Clear to Auscultation Cardiovascular: NL Sounds; No Murmurs; No JVD, RRR Abdominal: - - mild epigastric tenderness, no rebound, no guarding, BS+, colostomy noted Lymphatic: No Cervical Adenopathy Extremities: No Edema, No Clubbing, Cyanosis Skin: No Rash or Ulcers, No Nodules or Sclerosis Neurological: Alert and Oriented x 3, NL Muscle Strength and Tone Result Diagrams: 10/15/18 08:25 10/15/18 08:20 Microbiology and Other Data: Microbiology 10/14/18 01:59 Aerobic Blood Culture - Preliminary Blood Venous No Growth Day 1 Anaerobic Blood Culture - Preliminary No Growth Day 1 10/14/18 01:59 Aerobic Blood Culture - Preliminary Blood Venous No Growth Day 1 Anaerobic Blood Culture - Preliminary No Growth Day 1 Assess/Plan/Problems-Billing Assessment: 73 yo F who developed acute pancreatitis in 2009 complicated by hemorrhagic cyst and 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 Pt had colostomy placed in 2010 as a result of fistulas and pancreatic tail resection. Has not had any problems since apart for developing DM 2 years ago and placed on Invokana. On 10/13/18 developed severe abd pain and lipase was>6000 H/o recent PET/CT for lung nodule f/u with - Patient Problems (1) Acute pancreatitis Comment: d/w DR. Billings No need for emergent MRCP since lipase markedly improved today to 288 and LFT's WNL. Unsure of significance of CBD dilatation-? passed stone? OK to get MRCP tomorrow cont conservative management, advancing diet (2) DM2 (diabetes mellitus, type 2) Comment: Invokana could cause pancreatitis-was stopped, cont ISS (3) Hypothyroidism Comment: cont home PO meds (4) DVT prophylaxis Comment: pt declined HSQ due to h/o hemorrhagic pancreatic cyst in 2009, cont SCD's Status and Disposition: inpatient
[2018-10-16] MEDS: Insulin LISPRO* 1 UNITS UNIT SUBCUT SCH ×4 (01:17→16:30)
[2018-10-16] MEDS: Levothyroxine TAB* 112 MCG TAB PO SCH (05:42)
[2018-10-16] MEDS: Liothyronine TAB* 5 MCG PO SCH ×2 (05:42→15:03)
[2018-10-16 06:22] LABS: Hematocrit 38 % (35-47); Hemoglobin 12.8 g/dl (12.0-16.0); Mean Corpuscular HGB Conc 34 g/dl (31-36); Mean Corpuscular Hemoglobin 30 pg (27-31); Mean Corpuscular Volume 90 fL (80-97); Mean Platelet Volume 9.1 fL (7.4-10.4); Platelet Count 185 10^3/ul (150-450); Red Cell Distribution Width 13 % (10.5-15)
[2018-10-16 06:37] LABS: Albumin 3.3 g/dL (3.2-5.2); Albumin/Globulin Ratio 1.2 (1-3); BUN/Creatinine Ratio 11.4 (8-20); C Reactive Protein 71.64 mg/L (<8.01); Calcium 8.9 mg/dL (8.6-10.3); EGFR African American 98.7 (>60); EGFR Non-African American 81.6 (>60); Globulin 2.8 g/dL (2-4); Magnesium 1.7 mg/dL (1.9-2.7); Total Bilirubin 0.6 mg/dL (0.2-1.0); Total Protein 6.1 g/dL (6.4-8.9)
[2018-10-16] MEDS: Vitamin B Complex TAB PO SCH (08:02)
[2018-10-16] MEDS: Cholecalciferol TAB* 400 UNIT PO SCH (08:02)
[2018-10-16] MEDS: Multivitamins/Minerals TAB PO SCH (08:02)
[2018-10-16] MEDS: Magnesium Oxide TAB* 400 MG PO SCH ×4 (08:02→21:20)
[2018-10-16] MEDS ORDERED: Magnesium Sulfate 2 GM IV* 2 GM/50 ML BAG IVPB ONE (08:35)
--- NOTE | 2018-10-16 15:11 | PN ---
Subjective Date of Service: 10/16/18 Interval History: Pt feels well. Tolerating full liquid diet without problems. Abd not painful but tender Objective Active Medications: Acetaminophen (Tylenol Tab*) 650 mg PO Q6H PRN PRN Reason: FEVER/PAIN Cholecalciferol (Vitamin D Tab*) 400 unit PO DAILY [facility] Last Admin: 10/16/18 08:02 Dose: 400 unit Dextrose (D50w Syringe 50 Ml*) 12.5 gm IV PUSH .FOR FS < 60 - SS PRN PRN Reason: FS < 60 Insulin Human Lispro (Humalog*) 0 units SUBCUT Q6HR [facility]; Protocol Last Admin: 10/16/18 11:27 Dose: Not Given Levothyroxine Sodium (Synthroid Tab*) 112 mcg PO DAILY@0600 [facility] Last Admin: 10/16/18 05:42 Dose: 112 mcg Liothyronine Sodium (Cytomel Tab*) 5 mcg PO BID@0600,1500 [facility] Last Admin: 10/16/18 15:03 Dose: 5 mcg Magnesium Oxide (Magox 400 Tab*) 400 mg PO QID [facility] Last Admin: 10/16/18 12:49 Dose: 400 mg Morphine Sulfate (Morphine Vial*) 2 mg IV Q2H PRN PRN Reason: PAIN Last Admin: 10/14/18 13:16 Dose: 2 mg Multivitamins/Minerals (Theragran/Minerals Tab*) 1 tab PO DAILY [facility] Last Admin: 10/16/18 08:02 Dose: 1 tab Ondansetron HCl (Zofran Inj*) 4 mg IV Q6H PRN PRN Reason: NAUSEA Potassium Chloride (Klor Con Er Tab*) 10 meq PO EVERY OTHER DAY [facility] Last Admin: 10/15/18 10:02 Dose: 10 meq Vitamin B Complex/Vitamin E (B Complex-50*) 1 tab PO DAILY [facility] Last Admin: 10/16/18 08:02 Dose: 1 tab Vital Signs - 8 hr 10/16/18 10/16/18 07:38 11:59 Temperature 98.0 F Pulse Rate 47 Respiratory 16 20 Rate Blood Pressure 149/54 (mmHg) O2 Sat by Pulse 96 Oximetry Oxygen Devices in Use Now: None Appearance: 73 yo F in nAD, AAOx3 Eyes: No Scleral Icterus, PERRLA Ears/Nose/Mouth/Throat: NL Teeth, Lips, Gums, Mucous Membranes Moist Neck: NL Appearance and Movements; NL JVP, Trachea Midline Respiratory: Symmetrical Chest Expansion and Respiratory Effort, Clear to Auscultation Cardiovascular: NL Sounds; No Murmurs; No JVD, RRR Abdominal: - - tender in epigastrium no rebound, no guarding, colostomy with loose stool in bag, BS+ Lymphatic: No Cervical Adenopathy Extremities: No Edema, No Clubbing, Cyanosis Skin: No Rash or Ulcers, No Nodules or Sclerosis Neurological: Alert and Oriented x 3, NL Muscle Strength and Tone Result Diagrams: 10/16/18 06:05 10/16/18 06:05 Microbiology and Other Data: Microbiology 10/14/18 01:59 Aerobic Blood Culture - Preliminary Blood Venous No Growth Day 1 Anaerobic Blood Culture - Preliminary No Growth Day 1 10/14/18 01:59 Aerobic Blood Culture - Preliminary Blood Venous No Growth Day 1 Anaerobic Blood Culture - Preliminary No Growth Day 1 Assess/Plan/Problems-Billing Assessment: 73 yo F who developed acute pancreatitis in 2009 complicated by hemorrhagic cyst and 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 Pt had colostomy placed in 2010 as a result of fistulas and pancreatic tail resection. Has not had any problems since apart for developing DM 2 years ago and placed on Invokana. On 10/13/18 developed severe abd pain and lipase was>6000 H/o recent PET/CT for lung nodule f/u with - Patient Problems (1) Acute pancreatitis Comment: MRCP shows small defect in distal pancreatic duct. Lipase down to 227 cont conservative management, advancing diet. May be able to go home tonight depending on GI's recommendations. (2) DM2 (diabetes mellitus, type 2) Comment: Invokana could cause pancreatitis-was stopped, cont ISS (3) Hypothyroidism Comment: cont home PO meds (4) DVT prophylaxis Comment: pt declined HSQ due to h/o hemorrhagic pancreatic cyst in 2009, cont SCD's Status and Disposition: inpatient
--- NOTE | 2018-10-16 16:16 | PN ---
Progress Note - Progress Note Date of Service: 10/16/18 Note: doing better; eating turkey sand, fruit, ice cream as I enter the room; no pain ; no n/v wants to go home 98, 157/58, 52 gen: nad,alert and oriented x 3 heart: rrr lungs: CTA abd: mild epigastric tenderness, no R/G wbc6, hgb 12.8, plts 185 idio panc------has filling defect in panc duct on MRCP; consider outpt EUS; if alexi food, can likely dc tomorrow Mitchell Gastelum MD [facility] [phone]
[2018-10-17] MEDS: Insulin LISPRO* 1 UNITS UNIT SUBCUT SCH ×3 (00:47→12:07)
[2018-10-17] MEDS: Levothyroxine TAB* 112 MCG TAB PO SCH (05:32)
[2018-10-17] MEDS: Liothyronine TAB* 5 MCG PO SCH (05:32)
[2018-10-17 06:28] LABS: Hematocrit 40 % (35-47); Hemoglobin 13.2 g/dl (12.0-16.0); Mean Corpuscular HGB Conc 33 g/dl (31-36); Mean Corpuscular Hemoglobin 30 pg (27-31); Mean Corpuscular Volume 90 fL (80-97); Mean Platelet Volume 8.9 fL (7.4-10.4); Platelet Count 190 10^3/ul (150-450); Red Blood Count 4.39 10^6/ul (4.00-5.40); Red Cell Distribution Width 14 % (10.5-15); White Blood Count 5.9 10^3/ul (3.5-10.8)
[2018-10-17 06:46] LABS: Albumin 3.4 g/dL (3.2-5.2); Albumin/Globulin Ratio 1.1 (1-3); BUN/Creatinine Ratio 15.1 (8-20); Calcium 9.3 mg/dL (8.6-10.3); EGFR Non-African American 77.7 (>60); Globulin 3.1 g/dL (2-4); Total Bilirubin 0.5 mg/dL (0.2-1.0); Total Protein 6.5 g/dL (6.4-8.9)
[2018-10-17 08:33] VITALS: BP 150/59
[2018-10-17] MEDS: Magnesium Oxide TAB* 400 MG PO SCH (08:55)
[2018-10-17] MEDS: Multivitamins/Minerals TAB PO SCH (08:55)
[2018-10-17] MEDS: Cholecalciferol TAB* 400 UNIT PO SCH (08:56)
[2018-10-17] MEDS: Vitamin B Complex TAB PO SCH (08:56)
[2018-10-17] MEDS: Potassium Chlor TAB* 10 MEQ TAB.ER PO SCH (08:56)
--- NOTE | 2018-10-17 12:40 | DS ---
CC: JAELYN Coronado; Dr. Billings; Dr. Gastelum * DISCHARGE SUMMARY: DATE OF ADMISSION: 10/13/18 DATE OF DISCHARGE: 10/17/18 PRIMARY CARE PROVIDER: JAELYN Coronado DISCHARGE DIAGNOSIS: Acute pancreatitis of unknown etiology with most likely possibility of the source of pancreatitis is pancreatic duct stone. SECONDARY DIAGNOSES: 1. History of complicated pancreatitis in 2009 that was complicated by hemorrhagic cyst, subsequent development of abdominal abscesses and fistulas. Eventually in 2011, the patient had creation of colostomy and pancreatic tail resection. She has not had any episodes of acute pancreatitis since. 2. History of recurrent Clostridium difficile in 2010. 3. History of hypothyroidism. 4. Diabetes type 2. 5. History of solitary pulmonary nodule. 6. Status post cholecystectomy in 1996. MEDICATIONS AT DISCHARGE: Include: 1. Vitamin B one tablet daily. 2. Potassium chloride 10 mEq daily. 3. Multivitamin 1 tablet daily. 4. Magnesium 400 mg 4 times a day. 5. Cytomel 5 mcg b.i.d. 6. Synthroid 112 mcg daily. 7. Vitamin D 400 units daily. 8. Calcium carbonate and vitamin D one tablet b.i.d. 9. Aspirin 81 mg daily. CONSULTATIONS DURING THE HOSPITAL STAY: Included Dr. Billings and Dr. Gastelum from Gastroenterology. LABORATORY DATA AND STUDIES PERFORMED DURING THE HOSPITAL STAY: Includes on 07/26, sodium of 138, potassium 4.0, chloride 104, carbon dioxide 26, BUN 11, creatinine 0.73. Liver function tests were unremarkable. Lipase level of 129. Lipase peaked at admission 6439. CBC on 10/17/18 showed white blood cell count of 5.9, hemoglobin of 13.2, hematocrit of 40, and platelets of 190. MRCP obtained on 10/16/18, impression: "Filling defect of the distal pancreatic duct. A tiny calculi is not excluded. Common bile duct is enlarged. However, no abrupt termination of the duct is noted." CT of the abdomen and pelvis obtained on admission, impression: "Common bile duct is enlarged at 1.6 cm in diameter. Increase in size when compared to PET scan from 3 days ago. Moderate pneumobilia likely related to prior ERCP. Other chronic findings as above." HOSPITALIZATION COURSE: Marti Lazar is a 73-year-old female with history of complicated pancreatitis in 2009 that ended up with pancreatic tail resection and colostomy, who presented on 10/13/18 with abdominal pain that acutely occurred. The patient's lipase was over 6000. The CT of abdomen and pelvis showed enlargement of common bile duct but no obstruction. The patient was seen by gastroenterology furniture rental consultant and treated conservatively with limitation of diet initially with n.p.o., intravenous hydration. The patient's lipase was gradually falling during her hospital stay and together with that, her symptoms of epigastric pain had been improving gradually. An MRCP obtained on 10/16/18 showed the defect in the pancreatic duct likely related to distal pancreatic duct stone. As per discussion with the food concession manager, the patient is to follow up with Gastroenterology as outpatient for discussion of possibility of further evaluation of the filling defect in the pancreatic duct in the future that may require endoscopic ultrasound. The patient had been on Invokana for the past couple of years. From the literature review, Invokana was investigated for cause of pancreatitis. At this point, Invokana was stopped and it is recommended for the patient to not take it for another week and follow up with primary care provider with discussion of possibility of an alternative treatment with her primary care provider versus restarting it. Especially it appears that the patient more likely had pancreatic duct stone than medication side effect. At discharge, the patient has still mild epigastric tenderness on exam, but she tolerates soft diet without any difficulties. She is requested to follow up with low fat diet and no alcohol in the nearest future. The patient is recommended to follow up with primary care provider in approximately [address] Billings in approximately 3 to 4 weeks. PHYSICAL EXAM AT THE TIME OF DISCHARGE: Blood pressure of 150/59, heart rate of 51 and regular, respiratory rate 20, oxygen saturation 95% on room air, and temperature 97.9. General: The patient is a very pleasant 73-year-old female, who is in no acute distress. Alert, awake, and oriented x3. HEENT: Head: Atraumatic, normocephalic. Eyes: Pupils equal, reactive to light and accommodation. Oropharynx is clear. Mucosa moist. Neck: Supple. No JVD. No bruits bilaterally. Cardiovascular: Regular rate and rhythm. No murmur. Respiratory: Clear to auscultation bilaterally. Abdomen: Soft. Tender in the epigastric region with no rebound, no guarding. Bowel sounds present in all 4 quadrants. Colostomy present in the right side of umbilicus with liquid stool in place. Extremities: There is no edema. Pulses 2+ bilaterally. No clubbing or cyanosis. On neuro evaluation, speech clear. Cranial nerves II through XII grossly intact. Motor strength is 5/5 bilaterally. Please note that this is a short summary of the patient's hospital stay. Please refer to further medical records for details. TIME SPENT: Approximately 45 minutes was spent on the patient's discharge. [id number]/[facility] #: [id number] ISA
== END 2018-10-17 13:20 | disposition home or self-care (01) | DRG 440 ==
LOC: ED 18:28 → MEDTELE 22:50
PROVIDERS: ADMIT Hospitalist; ATTEND Internal Medicine
DX: K85.80 Other acute pancreatitis without necrosis or infection (principal); E03.9 Hypothyroidism, unspecified; E11.9 Type 2 diabetes mellitus without complications; R91.1 Solitary pulmonary nodule; Z93.3 Colostomy status; Z79.82 Long term (current) use of aspirin; Z79.899 Other long term (current) drug therapy; Z88.5 Allergy status to narcotic agent; Z82.49 Family history of ischemic heart disease and other diseases of the circulatory system; Z80.3 Family history of malignant neoplasm of breast; Z83.3 Family history of diabetes mellitus; Z79.84 Long term (current) use of oral hypoglycemic drugs
CPT/HCPCS: 36415; 71045; 74177; 74181; 76376; 80053; 80061; 81003; 83605; 83690; 83735; 85025; 85027; 86140; 87040; 99285; A9270-GY; J1644; J2270; J2405; J2543; J3475; Q9967